=== PATIENT | male | born 1930 ===

== ENCOUNTER 2017-02-13 17:17 | Emergency (ER) | payer MEDICARE, OTHER ==
[~2017-02-13] VITALS: Ht 165.1 cm; Wt 71.5 kg
[~2017-02-13 17:17] MED LIST: amlodipine; diovan; flomax; protonix; reglan
[2017-02-13 17:34] VITALS: Ht 165.1 cm; Wt 71.5 kg
[2017-02-13 18:29] LABS: URINE BLOOD (Dip) POC 3+ (NEGATIVE)
--- NOTE | 2017-02-13 18:55 | ERD ---
ER Documentation Chief Complaint Date/Time DATE: 02/13/17 TIME: 18:53 Chief Complaint urinary retention x 4 hrs HPI This 86-year-old male has had recurrent urinary retention. He had prostate surgery approximately 2 years ago. He had urinary retention and some unspecified prostate procedure 10 days ago. He had an episode of urinary retention few days ago and had it removed today. Today he complains of inability urinate 4 hours after removal of the Cristina. Denies fevers, vomiting. Is taking antibiotics for possible infection. He has good urology follow-up. ROS All systems reviewed and are negative except as per history of present illness. Medications Home Meds Reported Medications [amlodipine] No Conflict Check 02/08/11 [diovan] No Conflict Check 02/08/11 [protonix] No Conflict Check 02/08/11 [flomax] No Conflict Check 02/08/11 [reglan] No Conflict Check 02/08/11 Allergies Allergies: Coded Allergies: No Known Allergies (Verified Allergy, Mild, 02/08/11) PMhx/Soc History of Surgery: No Anesthesia Reaction: No Hx Neurological Disorder: No Hx Respiratory Disorders: No Hx Cardiac Disorders: No Hx Psychiatric Problems: No Hx Miscellaneous Medical Probl: No Hx Alcohol Use: No Hx Substance Use: No Hx Tobacco Use: No Smoking Status: Never smoker Physical Exam Vitals Vital Signs Date Time Temp Pulse Resp B/P Pulse Ox O2 Delivery O2 Flow Rate FiO2 02/13/17 17:34 98.7 88 18 190/81 98 Physical Exam Const: [] Alert, uncomfortable due to urinary retention. Head: Atraumatic Eyes: Normal Conjunctiva ENT: Normal External Ears, Nose and Mouth. Neck: Full range of motion..~ No meningismus. Resp: Clear to auscultation bilaterally Cardio: Regular rate and rhythm, no murmurs Abd: Soft, tender in the suprapubic area without tenderness at McBurney's point no rebound., non distended. Normal bowel sounds Skin: No petechiae or rashes Back: No midline or flank tenderness Ext: No cyanosis, or edema Neur: Awake and alert Psych: Normal Mood and Affect Results 24 hrs Laboratory Tests Test 02/13/17 18:29 Bedside Urine pH (LAB) 6.0 Bedside Urine Protein (LAB) 1+ Bedside Urine Glucose (UA) Negative Bedside Urine Ketones (LAB) Negative Bedside Urine Blood 3+ Bedside Urine Nitrite (LAB) Negative Bedside Urine Leukocyte Esterase (L 2+ Procedures/MDM Cristina catheter was placed in 500 cc of clear yellow urine draining into the bag. Patient felt much better after observation treatment patient presents with a history of urinary retention and prostatism with recurrent urinary retention. Discharged home with a leg bag instructions to continue levofloxacin. Urine shows 2+ leukocytes was today and was sent for culture. Will await culture results prior to changing any antibiotics. He is advised to return for fevers, vomiting, new worsening symptoms or with urology this week. Departure Diagnosis: Primary Impression: Retention of urine Condition: Stable Patient Instructions: Urinary Retention, Male Additional Instructions: Recheck with urology for further evaluation. Recheck for fevers, vomiting, new symptoms. TIMOTHY BURNHAM MD Feb 13, 2017 18:55
[2017-02-13 19:12] VITALS: BP 189/83; PULSE 64; RESP 18; TEMP 99.2
== END 2017-02-13 20:46 | disposition home or self-care (01) ==
LOC: FTE 17:17
DX: R33.9 Retention of urine, unspecified (principal)
CPT/HCPCS: 81003; 87086